=== PATIENT | male | born 1960 | race Hispanic/Latino ===

== ENCOUNTER 2018-04-15 11:08 | Emergency (ER) | payer OTHER, BC ==
[2018-04-15] MEDS ORDERED: HYDROcodone/Acetaminophen 5/325 mg Tablet ONE (13:48)
== END 2018-04-15 13:58 | disposition home or self-care (01) ==
LOC: ERS 11:08
DX: M79.651 Pain in right thigh (principal); I10 Essential (primary) hypertension; Z79.899 Other long term (current) drug therapy; Z79.84 Long term (current) use of oral hypoglycemic drugs; Z79.82 Long term (current) use of aspirin
CPT/HCPCS: 99283

== ENCOUNTER 2025-04-21 16:04 | Outpatient (CLI) | payer MEDICARE, OTHER | END 2025-04-21 16:05 | disposition home or self-care (01) | LOC: BICRAD 16:04 | PROVIDERS: ATTEND Family Medicine | DX: R09.89 Other specified symptoms and signs involving the circulatory and respiratory systems (principal); J98.11 Atelectasis | CPT/HCPCS: 71046 ==